=== PATIENT | female | born 1995 | race Caucasian/White ===

== ENCOUNTER 2020-06-13 17:59 | Emergency (ER) | payer SELFPAY ==
[2020-06-13 18:02] VITALS: BP 154/98; PULSE 113; RESP 18; TEMP 37.3; O2SAT 99; BMI 49.1
--- NOTE | 2020-06-13 18:07 | RAD_ITS ---
STUDY: X-RAY - RIGHT ANKLE REASON FOR EXAM: Female, 25 years old. PAIN S/P FALL TECHNIQUE: 3 view(s) of the ankle. COMPARISON: None. FINDINGS: Normal visualized distal tibia and fibula. Normal medial and lateral malleoli. Normal tibiotalar articulation and ankle mortise. Normal visualized talus and calcaneus. The visualized subtalar, talonavicular, calcaneocuboid and tarsal articulations are normal. The soft tissue structures are unremarkable. RAD/Ankle min 3 Views IMPRESSION: No fracture or malalignment. Electronically Signed: Josmeanuel Conte MD ([facility]) at 18:44 EST , Service support ,
--- NOTE | 2020-06-13 19:41 | ED.VISSUMM ---
- ER Visit Summary Date of Service: 06/13/20 Chief Complaint: Fall History of Present Illness: The patient is a 25 F who presents with right ankle pain that began after a fall today. Patient states she fell down approximately 3 steps. Patient states she then hit a door at the bottom of the steps. Patient states her pain is worse with any movement. Patient states her pain is constant dull and throbbing. Patient states her pain is sharp with any movement. Patient denies any paresthesias or weakness. Patient denies any head injury or loss of consciousness. Physical Examination: Musculoskeletal exam reveals tenderness, edema, and ecchymosis over the lateral aspect of the right ankle. There is also some mild tenderness over the medial malleolus. There is no deformity noted. Range of motion was limited in all motions of the right ankle secondary to pain. Pedal pulses are equal bilaterally. Sensation was intact to light touch in all digits. Capillary refill is less than 2 seconds in all digits. There is no tenderness over the fifth metatarsal or proximal fibula. Test Results: X-rays of the right ankle were obtained. There are 3 views. On my interpretation, there is no acute fracture. There is soft tissue swelling noted. Radiologist also interpreted the x-rays in degrees. Emergency Department Course and Treatment: Patient was instructed to ice and elevate the right ankle. Aircast was ordered but was unable to be fitted to the patient. Patient was given an Fausto wrap. Patient was instructed to take ibuprofen or Tylenol as needed for pain. Patient was instructed to follow-up with her primary care physician in 5 to 7 days. Patient understood and was agreeable with the plan. All questions were answered. Disposition: Discharge home Impression: Ankle sprain This note was generated with [employer] dictation software. It may contain incorrect words, spelling, and punctuation that were not noted in review of the chart prior to signing ED Disposition - Plan for ED Patient: Disposition: Home or Assisted Living Diagnosis: Right ankle sprain Instructions: ED Ankle Sprain (Adult) Referrals: [facility],Out of [Primary Care Provider] - 5-7 Days
== END 2020-06-13 20:23 | disposition home or self-care (01) ==
PROVIDERS: Emergency Provider Emergency Medicine
DX: S93.401A Sprain of unspecified ligament of right ankle, initial encounter (principal); W10.9XXA Fall (on) (from) unspecified stairs and steps, initial encounter; W22.09XA Striking against other stationary object, initial encounter; Y93.9 Activity, unspecified; Y92.9 Unspecified place or not applicable; Y99.9 Unspecified external cause status; M54.2 Cervicalgia; M54.9 Dorsalgia, unspecified; G89.29 Other chronic pain
CPT/HCPCS: 73610; 99283

== ENCOUNTER → 2020-10-12 11:17 | Outpatient (CLI) | payer OTHER, SELFPAY ==
[2020-10-12 13:09] LABS: Vitamin D,25 Hydroxy 9.5 ng/mL
[2020-10-12 13:14] LABS: Hemoglobin A1c 5.3 % (3.8-5.6)
[2020-10-12 13:23] LABS: Estradiol 93.1 pg/mL; Follicle Stimulating Hormone 1.2 mIU/mL; Luteinizing Hormone 2.6 mIU/mL; Prolactin 9.4 ng/mL; T4 Free Direct 0.94 ng/dL (0.76-1.46); Thyroid Stim Hormone (TSH) 1.28 uIU/mL (0.358-3.74)
[2020-10-16 09:57] LABS: 17-Hydroxyprogesterone 21 ng/dL (.)
[2020-10-17 08:07] LABS: Testosterone Free 1.2 pg/mL (0.0-4.2)
[2020-10-17 11:08] LABS: HPV Reflexed? NOT INDICATED
[2020-10-17 12:25] LABS: Sex Hormone-binding Globulin 46.6 nmol/L (24.6-122.0)
== END ==
LOC: WOBLAB 11:19
PROVIDERS: Visit Provider Student in an Organized Health Care Education/Training Program
DX: Z12.4 Encounter for screening for malignant neoplasm of cervix (principal); N92.6 Irregular menstruation, unspecified
CPT/HCPCS: 36415; 82306; 82627; 82670; 83001; 83002; 83036; 83498; 84146; 84270; 84402; 84439; 84443; 88175; 82626; G0145